=== PATIENT | male | born 1945 ===

== ENCOUNTER 2017-10-03 16:42 | Emergency (ER) | END 2017-10-03 19:08 | disposition home or self-care (01) ==

== ENCOUNTER 2018-03-13 17:12 | Emergency (ER) | payer MEDICARE, OTHER ==
[~2018-03-13] VITALS: Ht 162.6 cm; Wt 68.0 kg
[~2018-03-13 17:12] MED LIST: ALBU90OI6; GERD MED; Norco 5-325 Ta1 EACH PO; OMEG1CAP30; OMEG1CAP30 PO; OMEP20ER PO; OMEP40CA12 PO; PANT40 PO; PENVK250; PROM25 PO; RABE20; RANI150; TAMS.4ER; TAMS.4ER PO; Zantac150 MG PO
[2018-03-27] MEDS ORDERED: CEPH500 PO (02:17)
[2018-07-01] MEDS ORDERED: SACC250C (21:05)
== END 2018-03-13 19:07 | disposition home or self-care (01) ==
LOC: ER 17:12
DX: T83.038A Leakage of other urinary catheter, initial encounter (principal); R33.9 Retention of urine, unspecified; Z88.5 Allergy status to narcotic agent; Z79.899 Other long term (current) drug therapy; K21.9 Gastro-esophageal reflux disease without esophagitis
CPT/HCPCS: 51702; 51798; 99283-25

== ENCOUNTER 2018-06-13 12:10 | Inpatient (IN) | payer MEDICARE, OTHER ==
[~2018-06-13] VITALS: Ht 160 cm; Wt 64.2 kg
[~2018-06-13 12:10] MED LIST changes: +CEPH500 PO
[2018-06-13 12:59] LABS: BASOPHILS ABSOLUTE AUTO 0.01 K/mm3 (0.00-0.23); BASOPHILS PERCENT AUTO 0 % (0-2); EOSINOPHILS PERCENT AUTO 0 % (0-6); Hemoglobin 14.5 g/dL (13.5-17.5); IMMATURE GRAN ABSOLUTE AUTO 0.05 K/mm3 (0.00-0.10); IMMATURE GRAN PERCENT AUTO 0 % (0-1); LYMPHOCYTES ABSOLUTE AUTO 0.88 K/mm3 (0.84-5.20); LYMPHOCYTES PERCENT AUTO 7 % (21-46); MONOCYTES ABSOLUTE AUTO 0.99 K/mm3 (0.16-1.47); MONOCYTES PERCENT AUTO 7 % (4-13); Mean Corpuscular HGB 31.2 pg (26.0-34.0); Mean Corpuscular HGB Conc 33.7 g/dL (31.5-36.5); Mean Corpuscular Volume 93 fL (80-100); NEUTROPHILS ABSOLUTE AUTO 11.52 K/mm3 (1.96-9.15); NEUTROPHILS PERCENT AUTO 86 % (41-73); Platelet Count 244 K/mm3 (150-400); RDW Coefficient Variation 14.5 % (11.7-14.2); RDW Standard Deviation 49.3 fL (35.1-46.3); Red Blood Cell Count 4.65 M/mm3 (4.30-5.90); White Blood Cell Count 13.45 K/mm3 (4.00-11.30)
[2018-06-13 13:22] LABS: Source, Urine Clean Catch
[2018-06-13 14:10] LABS: Alanine Aminotransfer (ALT/SGP 17 U/L (12-78); Albumin, Blood 3.5 g/dL (3.4-5.0); Albumin/Globulin Ratio 0.7 (0.8-1.8); Alk Phos 76 U/L (50-136); Anion Gap 10 mmol/L (6-16); Aspartate Aminotrans (AST/SGOT 15 U/L (12-37); Bilirubin, Total 1.5 mg/dL (0.1-1.0); Blood Urea Nitrogen 9 mg/dL (8-24); Bun/Creatinine Ratio 8.6 (12.0-20.0); CO2, Blood 23 mmol/L (21-32); Calcium, Blood 9.1 mg/dL (8.5-10.1); Chloride, Blood 105 mmol/L (98-108); Creatinine, Blood 1.05 mg/dL (0.60-1.20); Globulin, Blood 4.7 g/dL (2.2-4.0); Glomerular Filtration Rate >60 (60-); Glucose, Blood 173 mg/dL (70-99); Potassium, Blood 3.8 mmol/L (3.5-5.5); Sodium, Blood 138 mmol/L (136-145); Total Protein, Blood 8.2 g/dL (6.4-8.2)
[2018-06-13 14:11] LABS: Appearance, Urine Cloudy (Clear); Bilirubin, Urine Neg (Neg); Blood, Urine 4+ (Neg); Color, Urine Amber (P-Yellow); Glucose Qualitative, Urine Neg (Neg); Ketones, Urine 1+ (Neg); Leukocyte Esterase, Urine 3+ (Neg); Nitrite, Urine Pos (Neg); Protein, Urine 3+ (Neg); Urobilinogen, Urine NORM (Normal)
[2018-06-13 15:00] LABS: White Blood Cells, Urine TNTC /hpf (0-5)
[2018-06-13 15:01] LABS: Bacteria Many /hpf; Squamous Epithelial Cells Not Seen /hpf (Few)
[2018-06-13 16:42] LABS: Source, Urine Catheter
[2018-06-13 16:56] LABS: Appearance, Urine Hazy (Clear); Bilirubin, Urine Neg (Neg); Blood, Urine 3+ (Neg); Color, Urine Yellow (P-Yellow); Glucose Qualitative, Urine Neg (Neg); Ketones, Urine Neg (Neg); Leukocyte Esterase, Urine 3+ (Neg); Nitrite, Urine Neg (Neg); Protein, Urine Neg (Neg); Urobilinogen, Urine NORM (Normal)
[2018-06-13 17:10] LABS: Squamous Epithelial Cells Rare /hpf (Few); White Blood Cells, Urine 50-100 /hpf (0-5)
[2018-06-13 17:11] LABS: Bacteria Few /hpf
--- NOTE | 2018-06-13 18:30 | NUR ---
PT ORIENTED TO ROOM; FAMILY ASSISTING WITH INTERPRETING INFORMATION. BED IN LOW AND LOCKED POSITION. PABLO IN PLACE. PT APPEARS IN NO ACUTE DISTRESS. ABLE TO STAND FROM ER STRETCHER AND TRANSFERT TO HOSPITAL BED INDEPENDENTLY. FREQUENT ROUNDING EXPLAINED TO PATIENT AND FAMILY.
[2018-06-13 21:25] LABS: Source, Urine Catheter
[2018-06-13 21:28] LABS: Appearance, Urine Hazy (Clear); Bilirubin, Urine Neg (Neg); Blood, Urine 3+ (Neg); Color, Urine Yellow (P-Yellow); Glucose Qualitative, Urine Neg (Neg); Ketones, Urine Neg (Neg); Leukocyte Esterase, Urine 3+ (Neg); Nitrite, Urine Neg (Neg); Protein, Urine 2+ (Neg); Urobilinogen, Urine NORM (Normal); pH, Urine 6.5 (5.0-8.0)
[2018-06-13 21:59] LABS: Red Blood Cells, Urine 0-2 /hpf (0-2); Squamous Epithelial Cells Not Seen /hpf (Few); White Blood Cells, Urine TNTC /hpf (0-5)
[2018-06-13 22:00] LABS: Bacteria Mod /hpf
--- NOTE | 2018-06-14 05:05 | NUR ---
SHIFT [facility] THE PATIENT WAS ADMITTED YESTERDAY, LATE DAY SHIFT FOR UTI. THE PATIENT SPEAKS VERY LITTLE KENYAN AND HAS HIS DAUGHTER IN HIS ROOM TO HELP. THE PATIENT HAD A PABLO CATHETER INPLACE UPON ADMISSION, SO IT WAS REMOVED, REPLACED AND A URINE SAMPLE WAS SENT TO THE LAB, PER PROTOCOL. THE PATIENT PRESENTED WITH VITALS WNL, A&O X4 AND WITH LUNGS THAT WERE CLEAR. THE PATIENT HAS RESTED OFF AND ON DURNING THE SHIFT, ASKING TO HAVE HIS DOOR CLOSED. THEPATIENT HAD A ELEVATED TEMP THIS AM AT 0445, (101.3) AND WAS GIVEN TYLENOL (650 MG) FOR IT. THE PATIENT SEEMS COMFORTABLE, WILL CONTINUE TO MONITOR.
[2018-06-14 05:30] LABS: BASOPHILS ABSOLUTE AUTO 0.02 K/mm3 (0.00-0.23); BASOPHILS PERCENT AUTO 0 % (0-2); EOSINOPHILS PERCENT AUTO 0 % (0-6); Hematocrit 37.1 % (37.0-53.0); Hemoglobin 12.5 g/dL (13.5-17.5); IMMATURE GRAN ABSOLUTE AUTO 0.15 K/mm3 (0.00-0.10); IMMATURE GRAN PERCENT AUTO 1 % (0-1); LYMPHOCYTES ABSOLUTE AUTO 1.97 K/mm3 (0.84-5.20); LYMPHOCYTES PERCENT AUTO 11 % (21-46); MONOCYTES ABSOLUTE AUTO 1.34 K/mm3 (0.16-1.47); MONOCYTES PERCENT AUTO 8 % (4-13); Mean Corpuscular HGB 30.9 pg (26.0-34.0); Mean Corpuscular HGB Conc 33.7 g/dL (31.5-36.5); Mean Corpuscular Volume 92 fL (80-100); Mean Platelet Volume 9.5 fL (9.1-12.4); NEUTROPHILS ABSOLUTE AUTO 14.02 K/mm3 (1.96-9.15); NEUTROPHILS PERCENT AUTO 80 % (41-73); Platelet Count 217 K/mm3 (150-400); RDW Coefficient Variation 14.3 % (11.7-14.2); RDW Standard Deviation 48.6 fL (35.1-46.3); Red Blood Cell Count 4.05 M/mm3 (4.30-5.90)
[2018-06-14 05:58] LABS: Anion Gap 11 mmol/L (6-16); Blood Urea Nitrogen 9 mg/dL (8-24); Bun/Creatinine Ratio 8.9 (12.0-20.0); CO2, Blood 22 mmol/L (21-32); Calcium, Blood 8.6 mg/dL (8.5-10.1); Chloride, Blood 108 mmol/L (98-108); Creatinine, Blood 1.01 mg/dL (0.60-1.20); Glomerular Filtration Rate >60 (60-); Glucose, Blood 121 mg/dL (70-99); Potassium, Blood 3.4 mmol/L (3.5-5.5); Sodium, Blood 141 mmol/L (136-145)
--- NOTE | 2018-06-14 14:49 | NUR ---
Per admit trigger, I met with Mr. Hickman to offer prayer and spiritual support. Numerous family members present. They declined my visit and told me that Father James would be visiting this afternoon. I will remain available.
--- NOTE | 2018-06-14 16:17 | NUR ---
SHIFT SUMMARY NO ACUTE CHANGES. PATIENT MEDICATED X 1 FOR PAIN. PATIENT'S FAMILY WAS IN THE ROOM ALL DAY AND ASSISTED IN COMMUNICATION WITH PATIENT. PATIENT RESTED IN BED MOST OF DAY BUT DID GET UP FOR SHOWER. CALL LIGHT IN REACH, WILL CONTINUE TO MONITOR.
--- NOTE | 2018-06-15 04:22 | NUR ---
SHIFT SUMMARY NO ACUTE CHANGES TO REPORT. PT HAS RESTED MOST OF THE NIGHT, HE HAS DENIED NEEDS. SCROTUM REMAINS SWOLLEN AND RED. CATHETER IN PLACE WITH ADEQUATE OUTPUT. LR INFUSING AT 125 ML/HR. FAMILY REMAINS AT BEDSIDE T/O THE NIGHT, AND ASSIST IN HIS CARE AND ARE ABLE TO HELP WITH LANGUAGE BARRIER BETWEEN PT AND STAFF HE IS LATVIAN SPEAKING ONLY. ASSESSMENT UNCHANGED, WILL CONTINUE TO MONITOR AND REPORT TO ONCOMING RN.
[2018-06-15 05:26] LABS: BASOPHILS ABSOLUTE AUTO 0.01 K/mm3 (0.00-0.23); BASOPHILS PERCENT AUTO 0 % (0-2); EOSINOPHILS ABSOLUTE AUTO 0.06 K/mm3 (0.00-0.68); EOSINOPHILS PERCENT AUTO 1 % (0-6); Hematocrit 36.1 % (37.0-53.0); Hemoglobin 11.9 g/dL (13.5-17.5); IMMATURE GRAN ABSOLUTE AUTO 0.05 K/mm3 (0.00-0.10); IMMATURE GRAN PERCENT AUTO 0 % (0-1); LYMPHOCYTES ABSOLUTE AUTO 2.16 K/mm3 (0.84-5.20); LYMPHOCYTES PERCENT AUTO 17 % (21-46); MONOCYTES ABSOLUTE AUTO 0.76 K/mm3 (0.16-1.47); MONOCYTES PERCENT AUTO 6 % (4-13); Mean Corpuscular HGB 30.3 pg (26.0-34.0); Mean Corpuscular Volume 92 fL (80-100); Mean Platelet Volume 9.8 fL (9.1-12.4); NEUTROPHILS ABSOLUTE AUTO 9.99 K/mm3 (1.96-9.15); NEUTROPHILS PERCENT AUTO 77 % (41-73); Platelet Count 211 K/mm3 (150-400); RDW Coefficient Variation 14.6 % (11.7-14.2); RDW Standard Deviation 49.4 fL (35.1-46.3); Red Blood Cell Count 3.93 M/mm3 (4.30-5.90); White Blood Cell Count 13.03 K/mm3 (4.00-11.30)
[2018-06-15 05:47] LABS: Albumin, Blood 2.5 g/dL (3.4-5.0); Anion Gap 8 mmol/L (6-16); Blood Urea Nitrogen 11 mg/dL (8-24); Bun/Creatinine Ratio 10.2 (12.0-20.0); CO2, Blood 25 mmol/L (21-32); Calcium, Blood 8.8 mg/dL (8.5-10.1); Chloride, Blood 110 mmol/L (98-108); Creatinine, Blood 1.08 mg/dL (0.60-1.20); Glomerular Filtration Rate >60 (60-); Glucose, Blood 111 mg/dL (70-99); Potassium, Blood 3.8 mmol/L (3.5-5.5); Sodium, Blood 143 mmol/L (136-145)
--- NOTE | 2018-06-15 08:15 | NUR ---
PT PLEASANT [place] SPEAKING. SON AT BEDSIDE. FLUENT FIELD MARKETING COORDINATOR. STATS PAIN RT TESTICLE. IS SWOLLEN, PAINFUL DR NOTIFIED. H/R REG, NO MURMER NOTED. NO TELE. LUNGS CLEAR, RESP EASY, UNLABORED. ON R.A. BT X4 LAST BM 2 DAYS. PT STATES NORM. VOIDS PABLO CATH. CHRONIC. CLEAR YELLOW FLUID DRAINING. NO OTHER CONCERNS AT THIS TIME. WILL MEDICATE PER EMAR. BED IN LOW POSITION, CALL LITE IN REACH, CALLS APPROP
--- NOTE | 2018-06-15 19:22 | NUR ---
PT PLEASANT TODAY. NO BENGALI SPEAKING. BILINGUAL FAMILY AT ROOM AT BEDSIDE AT ALL TIME. PAIN MANAGED WELL WITH TORADOL. FENTANYL DID VERY LITTLE FOR HIM. NO OTHER CONCERNS AT THIS TIME. BED IN LOW POSITION, CALL LITE IN REACH . CALLS APPROP.
--- NOTE | 2018-06-16 04:28 | NUR ---
SHIFT SUMMARY PT'S FAMILY ASSISTS/PROVIDES MUCH OF THE CARE. PT FINDS TORADOL MORE EFFECTIVE AT CONTROLLING HIS PAIN THAN ALL ELSE ON HIS EMAR. TORADOL Q 6HR. HE IS A STANDBY ASSIST, ON RA. HE HAS A HX OF BPH. ADMIT DX STATES UTI. PT SPEAKS ONLY CZECH, FAMILY DOES SPEAK SAMI. PT HAS EPIDIDIMITIS OF THE RT TESTICLE, IT IS SWOLLEN AND HARD. PT'S PAIN WELL CONTROLLED THROUGHOUT SHIFT. DR'S NOTES RECOMMEND TESTICULAR ELEVATION AND ICE. WITH DOWNTRENDING WBC COUNT PT MAY DC WITHIN 24 - 48 HRS.
[2018-06-16 05:11] LABS: BASOPHILS ABSOLUTE AUTO 0.02 K/mm3 (0.00-0.23); BASOPHILS PERCENT AUTO 0 % (0-2); EOSINOPHILS ABSOLUTE AUTO 0.06 K/mm3 (0.00-0.68); EOSINOPHILS PERCENT AUTO 1 % (0-6); Hematocrit 37.1 % (37.0-53.0); Hemoglobin 12.2 g/dL (13.5-17.5); IMMATURE GRAN ABSOLUTE AUTO 0.04 K/mm3 (0.00-0.10); IMMATURE GRAN PERCENT AUTO 0 % (0-1); LYMPHOCYTES ABSOLUTE AUTO 1.58 K/mm3 (0.84-5.20); LYMPHOCYTES PERCENT AUTO 13 % (21-46); MONOCYTES ABSOLUTE AUTO 0.97 K/mm3 (0.16-1.47); MONOCYTES PERCENT AUTO 8 % (4-13); Mean Corpuscular HGB 30.6 pg (26.0-34.0); Mean Corpuscular HGB Conc 32.9 g/dL (31.5-36.5); Mean Corpuscular Volume 93 fL (80-100); Mean Platelet Volume 9.6 fL (9.1-12.4); NEUTROPHILS ABSOLUTE AUTO 9.17 K/mm3 (1.96-9.15); NEUTROPHILS PERCENT AUTO 78 % (41-73); Platelet Count 238 K/mm3 (150-400); RDW Coefficient Variation 14.5 % (11.7-14.2); Red Blood Cell Count 3.99 M/mm3 (4.30-5.90); White Blood Cell Count 11.84 K/mm3 (4.00-11.30)
[2018-06-16 05:34] LABS: Albumin, Blood 2.6 g/dL (3.4-5.0); Anion Gap 7 mmol/L (6-16); Blood Urea Nitrogen 11 mg/dL (8-24); Bun/Creatinine Ratio 10.7 (12.0-20.0); CO2, Blood 26 mmol/L (21-32); Calcium, Blood 8.9 mg/dL (8.5-10.1); Chloride, Blood 109 mmol/L (98-108); Creatinine, Blood 1.03 mg/dL (0.60-1.20); Glomerular Filtration Rate >60 (60-); Glucose, Blood 143 mg/dL (70-99); Phosphorus, Blood 2.9 mg/dL (2.5-4.9); Potassium, Blood 3.8 mmol/L (3.5-5.5); Sodium, Blood 142 mmol/L (136-145)
--- NOTE | 2018-06-16 19:32 | NUR ---
SHIFT SUMMARY- PT HAS HAD NO ACUTE CHANGES T/O THE SHIFT. DR LEMONS ADDED TRAMADOL TO PT MED PRNS. SEEMS TO HELP. PT HAS HAD ONE DOSE OF THAT AND TWO OF TRAMADOL. TYLENOL FOR LOW GRADE FEVERS, PT SEEMS TO RESPOND WELL TO TYLENOL. PT HAS FAMILY AT THE BEDSIDE HE SPEAKS NO MARSHALLESE, FAMILY HAS CHOSEN TO STAY AND TRANSLATE FOR HIM. FAMILY ASSISTS PT WITH ALL TRANSFERS AND TOILETING. PT HAS HAD TWO BM'S THIS SHIFT AND HIS DAUGHTER GOT HIM UP INTO THE CHAIR TWICE. ICE WAS APPLIED TO THE SCROTUM PER ORDER. PT DID NOT REALLY WANT ICE IN THAT AREA BUT WAS WILLING TO HAVE IT PLACED. PT IS VERY WILLING TO DO WHAT STAFF ASK, HE DOES NOT LIKE ANY NARCOTIC MEDICATIONS PER FAMILY REPORT, SO TORADOL, TRAMADOL AND TYLENOL ARE ORDERED.
[2018-06-17 04:47] LABS: BASOPHILS ABSOLUTE AUTO 0.02 K/mm3 (0.00-0.23); BASOPHILS PERCENT AUTO 0 % (0-2); EOSINOPHILS ABSOLUTE AUTO 0.11 K/mm3 (0.00-0.68); EOSINOPHILS PERCENT AUTO 1 % (0-6); Hematocrit 35.7 % (37.0-53.0); Hemoglobin 11.5 g/dL (13.5-17.5); IMMATURE GRAN ABSOLUTE AUTO 0.04 K/mm3 (0.00-0.10); IMMATURE GRAN PERCENT AUTO 0 % (0-1); LYMPHOCYTES ABSOLUTE AUTO 1.69 K/mm3 (0.84-5.20); LYMPHOCYTES PERCENT AUTO 12 % (21-46); MONOCYTES ABSOLUTE AUTO 1.13 K/mm3 (0.16-1.47); MONOCYTES PERCENT AUTO 8 % (4-13); Mean Corpuscular HGB Conc 32.2 g/dL (31.5-36.5); Mean Corpuscular Volume 93 fL (80-100); Mean Platelet Volume 9.5 fL (9.1-12.4); NEUTROPHILS ABSOLUTE AUTO 10.76 K/mm3 (1.96-9.15); NEUTROPHILS PERCENT AUTO 78 % (41-73); Platelet Count 249 K/mm3 (150-400); RDW Coefficient Variation 14.5 % (11.7-14.2); Red Blood Cell Count 3.83 M/mm3 (4.30-5.90); White Blood Cell Count 13.75 K/mm3 (4.00-11.30)
[2018-06-17 05:04] LABS: Albumin, Blood 2.4 g/dL (3.4-5.0); Anion Gap 9 mmol/L (6-16); Blood Urea Nitrogen 15 mg/dL (8-24); Bun/Creatinine Ratio 13.4 (12.0-20.0); CO2, Blood 25 mmol/L (21-32); Calcium, Blood 8.6 mg/dL (8.5-10.1); Chloride, Blood 107 mmol/L (98-108); Creatinine, Blood 1.12 mg/dL (0.60-1.20); Glomerular Filtration Rate >60 (60-); Glucose, Blood 132 mg/dL (70-99); Phosphorus, Blood 3.1 mg/dL (2.5-4.9); Potassium, Blood 3.7 mmol/L (3.5-5.5); Sodium, Blood 141 mmol/L (136-145)
--- NOTE | 2018-06-17 05:45 | NUR ---
SHIFT SUMMARY PT SLEPT MANY HOURS BEFORE ASKING FOR PAIN MEDICATION. THEN IT WAS DIFFICULT TO BRING DOWN. I EXPLAINED TO HIS FAMILY THAT IT IS BETTER TO TREAT THE PAIN BEFORE IT GROWS OUT OF CONTROL. THEN THE PAIN IS MORE EASILY CONTROLLED WITH LESS. I DID PROVIDE EMAR PAIN MEDICATIONS AND ICE TO THE AFFECTED AREA. DAY SHIFT NURSE STATED THERE MAY BE AN ABSCESS PRESENT REQUIRING TREATMENT. PT STATING THAT THE PAIN IS NOW TRAVELING UP TO HIS STOMACH AND HE IS CONCERNED. THE PT'S URINE IS DARKER THAN NORMAL IN THE CHRONIC PABLO BAG (HX OF BPH).
--- NOTE | 2018-06-17 19:58 | NUR ---
SHIFT SUMMARY- PT HAS HAD NO ACUTE CHANGES T/O THE SHIFT. MEDICATED FOR PAIN THIS MORNING 06/17 AND THIS AFTERNOON FOR SWELLING WITH TORADOL. AFFECTED AREA WAS ELEVATED AND ICE APPLIED ONCE TODAY. PT FAMILY HELPED HIM TAKE A SHOWER AND TOOK HIM FOR A WALK IN THE [place]. THIS ENDED AT SHIFT CHANGE, 1800 DOSE OF IV ABX ATTEMPTED TO START, IV INFILTRATED. REQUESTED NIGHT RN START MEDS, ASKED NIGHT RN HERLINDA TO START THE IV. PTIN BED WITH FAMILY AND CALL LIGHT IN REACH.
[2018-06-18 05:06] LABS: BASOPHILS ABSOLUTE AUTO 0.02 K/mm3 (0.00-0.23); BASOPHILS PERCENT AUTO 0 % (0-2); EOSINOPHILS ABSOLUTE AUTO 0.21 K/mm3 (0.00-0.68); EOSINOPHILS PERCENT AUTO 2 % (0-6); Hemoglobin 11.7 g/dL (13.5-17.5); IMMATURE GRAN ABSOLUTE AUTO 0.05 K/mm3 (0.00-0.10); IMMATURE GRAN PERCENT AUTO 1 % (0-1); LYMPHOCYTES ABSOLUTE AUTO 1.95 K/mm3 (0.84-5.20); LYMPHOCYTES PERCENT AUTO 19 % (21-46); MONOCYTES ABSOLUTE AUTO 0.83 K/mm3 (0.16-1.47); MONOCYTES PERCENT AUTO 8 % (4-13); Mean Corpuscular HGB 30.5 pg (26.0-34.0); Mean Corpuscular HGB Conc 33.4 g/dL (31.5-36.5); Mean Corpuscular Volume 91 fL (80-100); Mean Platelet Volume 9.4 fL (9.1-12.4); NEUTROPHILS ABSOLUTE AUTO 7.41 K/mm3 (1.96-9.15); NEUTROPHILS PERCENT AUTO 71 % (41-73); Platelet Count 289 K/mm3 (150-400); RDW Coefficient Variation 14.6 % (11.7-14.2); RDW Standard Deviation 49.1 fL (35.1-46.3); Red Blood Cell Count 3.84 M/mm3 (4.30-5.90); White Blood Cell Count 10.47 K/mm3 (4.00-11.30)
--- NOTE | 2018-06-18 05:21 | NUR ---
SHIFT SUMMARY FAMILY IN ROOM, ASSISTS WITH PT CARE. FAMILY HAS CONCERNS THEY WISH TO EXPRESS: THEY ARE FRIGHTENED PT WILL BE DISCHARGED WITH A FEVER AND BE SENT HOME, ONLY TO BE RETURNED TO THE HOSPITAL. THEY ARE UNABLE TO TRANSPORT PT TO [place] TO SEE REFERAL UROLOGIST, CAN TRANSPORTATION BE ARRANGED? THEY ARE WONDERING HOW THE ABSCESS WILL BE MANAGED. THE PT'S IV INFILTRATED AT END OF DAY NURSE'S SHIFT. NEW IV PLACED AND PATENT IN LEFT ARM, JUST ABOVE THE PREVIOUS. THE PT NOW HAS EYE DROPS IN HIS DRAWER FOR DRY EYES. IV TORADOL SHOULD BE GIVEN WHEN REQUESTED BY PT (AND DUE) IT'S INTENTION IS TO MANAGE THE PT'S INFLAMMATION, WELL PAIN. NO OTHER CHANGES THROUGHOUT SHIFT, PT'S PAIN WAS WELL MANAGED.
[2018-06-18 05:26] LABS: Albumin, Blood 2.4 g/dL (3.4-5.0); Anion Gap 7 mmol/L (6-16); Blood Urea Nitrogen 11 mg/dL (8-24); Bun/Creatinine Ratio 10.2 (12.0-20.0); CO2, Blood 26 mmol/L (21-32); Calcium, Blood 8.8 mg/dL (8.5-10.1); Chloride, Blood 109 mmol/L (98-108); Creatinine, Blood 1.08 mg/dL (0.60-1.20); Glomerular Filtration Rate >60 (60-); Glucose, Blood 125 mg/dL (70-99); Phosphorus, Blood 3.3 mg/dL (2.5-4.9); Potassium, Blood 3.7 mmol/L (3.5-5.5); Sodium, Blood 142 mmol/L (136-145)
--- NOTE | 2018-06-18 14:32 | NUR ---
CALLED DR. ELLIOTT ABOUT PATIENT HAVING SHARP INTERMITTENT PAIN IN CHEST. SIMETHICONE GIVEN X1 WITH SOME RELEIF. DR. ELLIOTT GAVE VERBAL ORDER FOR MAALOX, AND WILL PUT IN THE REST OF THE ORDERS.
--- NOTE | 2018-06-18 17:01 | NUR ---
PATIENT A/OX4, UP WITH SBA TO CHAIR. FAMILY AT BEDSIDE AND ASSISTS WITH ADL'S. CHRONIC PABLO TO GRAVITY WITH ADEQUATE U/O. R TESTICLE SWOLLEN, HARD AND PAINFUL. TORADOL GIVEN X1 THIS SHIFT FOR PAIN. PATIENT REPORTED CHEST PAIN THIS AFTERNOON, TROPONIN WAS DRAWN AND IT WAS NEGATIVE. MAALOX GIVEN AND CHEST PAIN WAS RESOLVED. 20G IV TO L FA SL BETWEEN ABX. PATIENT IS ARMENIAN SPEAKING ONLY AND FAMILY AND STAFF ARE ASSISTING WITH TRANSLATION. PATIENT IS CALM AND COOPERATIVE WITH CARE AND CALLS APPROPRIATELY FOR ASSISTANCE.
--- NOTE | 2018-06-19 04:33 | NUR ---
PPAP COORDINATOR SUMMARY NO ACUTE CHANGES THIS SHIFT. PT AAOX4 AND PLEASANT/COOPERATIVE. STANDBY ASSIST TO BATHROOM. PT FAMILY HELPS PT MOST OF THE TIME IN THE ROOM AND TO THE BATHROOM. DAUGHTER STAYED AT BEDSIDE THROUGH THE NIGHT TO ASSIST HER DAD AND TO HELP WITH TRANSLATION PT ONLY SPEAKS KYRGYZ. PT REPORTED SOME PAIN OF HIS SWOLLEN SCROTUM. GAVE ULTRAM, HOWEVER PT STATED IT DID NOT HELP WITH PAIN. DAUGHTER REPORTED THAT IV TORADOL REALLY HELPED WITH HIS PAIN CONTROL, PROBABLY DUE TO IT'S ANTI INFLAMMATORY PROPERTIES. SPOKE WITH DR MOHAMUD REGARDING POOR PAIN MANAGEMENT WITH ULTRAM, RECIEVED ORDER TO START TORADOL AGAIN. PT REPORTS ALMOST COMPLETE PAIN RELIEF WITH 15 MG IV TORADOL. VSS, WILL CONTINUE TO MONITOR.
[2018-06-19] MEDS ORDERED: ACET325 PO (09:32)
[2018-06-19] MEDS ORDERED: Liquitears15 ML BOTHEYES (09:33)
[2018-06-19] MEDS ORDERED: ALUM-MAG HYDRO360 ML PO (09:33)
[2018-06-19] MEDS ORDERED: SACC250C PO (09:33)
[2018-06-19] MEDS ORDERED: TRAM50 PO (09:34)
[2018-06-19] MEDS ORDERED: SIME80CH PO (09:34)
[2018-06-19] MEDS ORDERED: IBU800 MG PO (09:35)
[2018-06-19] MEDS ORDERED: LEVFLO500 PO (09:35)
--- NOTE | 2018-06-19 11:25 | NUR ---
PATIENT D/C'D TO HOME WITH FAMILY. D/C INSTRUCTIONS AND EDUCATION DISCUSSED WITH PATIENT AND FAMILY AND COPY PROVIDED. RX MEDICATIONS FAXED TO [facility] IN [place] AND HARD SCRIPT FOR TRAMODOL GIVEN TO DAUGHTER FERNIE. PATIENT AND FAMILY DENY ANY FURTHER QUESTIONS OR CONCERNS. APPT WITH UROLOGIST SCHEDULED FOR MONDAY IN [place] WITH DR. PALACIOS.
[2018-07-01] MEDS ORDERED: SACC250C (21:05)
== END 2018-06-19 11:31 | disposition home or self-care (01) | DRG 872 ==
LOC: ER 12:10 → MEDS 17:19 → ENPENDDIS 06-19 09:14 → MEDS 06-19 11:31
PROVIDERS: Emergency Medicine; Physician Assistant; ADMIT Family Medicine
DX: A41.9 Sepsis, unspecified organism (principal); N39.0 Urinary tract infection, site not specified; N13.8 Other obstructive and reflux uropathy; R65.20 Severe sepsis without septic shock; N40.1 Benign prostatic hyperplasia with lower urinary tract symptoms; N45.1 Epididymitis; E78.5 Hyperlipidemia, unspecified; K21.9 Gastro-esophageal reflux disease without esophagitis; Z88.5 Allergy status to narcotic agent; Z79.899 Other long term (current) drug therapy; Z87.891 Personal history of nicotine dependence
CPT/HCPCS: 36415; 51798; 71046; 76870; 80048; 80053; 80069; 81001; 83605; 84484; 85025; 87040; 87086; 96365; 96367; 96375; 99285-25; J0692; J1650; J1885; J1956; J3010; J3370; J7030; J7050; J7120

== ENCOUNTER → 2018-07-08 | Outpatient (CLI) | payer MEDICARE, OTHER ==
[~2018-07-08] MED LIST changes: +ACET325 PO; +ALUM-MAG HYDRO360 ML PO; +IBU800 MG PO; +LEVFLO500 PO; +Liquitears15 ML BOTHEYES; +SACC250C; +SACC250C PO; +SIME80CH PO; +TRAM50 PO
[2018-07-08 12:27] LABS: BASOPHILS ABSOLUTE AUTO 0.01 K/mm3 (0.00-0.23); BASOPHILS PERCENT AUTO 0 % (0-2); EOSINOPHILS ABSOLUTE AUTO 0.06 K/mm3 (0.00-0.68); EOSINOPHILS PERCENT AUTO 1 % (0-6); Hemoglobin 13.4 g/dL (13.5-17.5); IMMATURE GRAN ABSOLUTE AUTO 0.02 K/mm3 (0.00-0.10); IMMATURE GRAN PERCENT AUTO 0 % (0-1); LYMPHOCYTES ABSOLUTE AUTO 1.58 K/mm3 (0.84-5.20); LYMPHOCYTES PERCENT AUTO 26 % (21-46); MONOCYTES ABSOLUTE AUTO 0.42 K/mm3 (0.16-1.47); MONOCYTES PERCENT AUTO 7 % (4-13); Mean Corpuscular HGB 30.1 pg (26.0-34.0); Mean Corpuscular HGB Conc 33.5 g/dL (31.5-36.5); Mean Platelet Volume 9.1 fL (9.1-12.4); NEUTROPHILS ABSOLUTE AUTO 4.06 K/mm3 (1.96-9.15); NEUTROPHILS PERCENT AUTO 66 % (41-73); Platelet Count 342 K/mm3 (150-400); RDW Coefficient Variation 15.2 % (11.7-14.2); RDW Standard Deviation 49.5 fL (35.1-46.3); Red Blood Cell Count 4.45 M/mm3 (4.30-5.90); White Blood Cell Count 6.15 K/mm3 (4.00-11.30)
[2018-07-08 12:42] LABS: Mean Corpuscular Volume 90 fL (80-100)
[2018-07-08 12:45] LABS: Alanine Aminotransfer (ALT/SGP 18 U/L (12-78); Albumin, Blood 3.7 g/dL (3.4-5.0); Albumin/Globulin Ratio 0.8 (0.8-1.8); Alk Phos 83 U/L (40-126); Anion Gap 10 mmol/L (6-16); Aspartate Aminotrans (AST/SGOT 20 U/L (12-37); Bilirubin, Total 0.6 mg/dL (0.1-1.0); Blood Urea Nitrogen 10 mg/dL (8-24); Bun/Creatinine Ratio 9.3 (12.0-20.0); CO2, Blood 27 mmol/L (21-32); CPK Creatine Kinase 71 U/L (39-308); Calcium, Blood 9.5 mg/dL (8.5-10.1); Chloride, Blood 104 mmol/L (98-108); Creatinine, Blood 1.08 mg/dL (0.60-1.20); Globulin, Blood 4.4 g/dL (2.2-4.0); Glomerular Filtration Rate >60 (60-); Glucose, Blood 107 mg/dL (70-99); Potassium, Blood 3.8 mmol/L (3.5-5.5); Sodium, Blood 141 mmol/L (136-145); Thyroid Stimulating Hormone 0.903 uIU/mL (0.360-4.800); Total Protein, Blood 8.1 g/dL (6.4-8.2)
[2018-07-08 12:51] LABS: Troponin I <0.017 ng/mL (0.000-0.040)
== END | disposition home or self-care (01) ==
LOC: LAB EV 12:20 → LAB SHORT 12:20
PROVIDERS: General Practice
DX: R06.00 Dyspnea, unspecified (principal); R53.81 Other malaise
CPT/HCPCS: 80053; 82550; 83880; 84443; 84484; 85025; 85379

== ENCOUNTER 2018-08-24 19:27 | Emergency (ER) | payer MEDICARE, OTHER ==
[~2018-08-24] VITALS: Ht 162.6 cm; Wt 68.0 kg
[2018-08-24 20:24] LABS: Alanine Aminotransfer (ALT/SGP 17 U/L (12-78); Alk Phos 79 U/L (50-136); Anion Gap 6 mmol/L (6-16); Aspartate Aminotrans (AST/SGOT 18 U/L (12-37); Bilirubin, Total 0.8 mg/dL (0.1-1.0); Blood Urea Nitrogen 14 mg/dL (8-24); Bun/Creatinine Ratio 14.7 (12.0-20.0); CO2, Blood 28 mmol/L (21-32); Calcium, Blood 9.5 mg/dL (8.5-10.1); Chloride, Blood 107 mmol/L (98-108); Creatinine, Blood 0.95 mg/dL (0.60-1.20); Glomerular Filtration Rate >60 (60-); Glucose, Blood 103 mg/dL (70-99); Potassium, Blood 3.5 mmol/L (3.5-5.5); Sodium, Blood 141 mmol/L (136-145)
[2018-08-24 20:34] LABS: BASOPHILS ABSOLUTE AUTO 0.01 K/mm3 (0.00-0.23); BASOPHILS PERCENT AUTO 0 % (0-2); EOSINOPHILS ABSOLUTE AUTO 0.08 K/mm3 (0.00-0.68); EOSINOPHILS PERCENT AUTO 2 % (0-6); Hemoglobin 14.5 g/dL (13.5-17.5); IMMATURE GRAN ABSOLUTE AUTO 0.01 K/mm3 (0.00-0.10); IMMATURE GRAN PERCENT AUTO 0 % (0-1); LYMPHOCYTES ABSOLUTE AUTO 2.53 K/mm3 (0.84-5.20); LYMPHOCYTES PERCENT AUTO 48 % (21-46); MONOCYTES ABSOLUTE AUTO 0.44 K/mm3 (0.16-1.47); MONOCYTES PERCENT AUTO 8 % (4-13); Mean Corpuscular HGB 29.9 pg (26.0-34.0); Mean Corpuscular Volume 91 fL (80-100); Mean Platelet Volume 9.2 fL (9.1-12.4); NEUTROPHILS ABSOLUTE AUTO 2.21 K/mm3 (1.96-9.15); NEUTROPHILS PERCENT AUTO 42 % (41-73); Platelet Count 255 K/mm3 (150-400); RDW Coefficient Variation 15.3 % (11.7-14.2); RDW Standard Deviation 51.1 fL (35.1-46.3); Red Blood Cell Count 4.85 M/mm3 (4.30-5.90); White Blood Cell Count 5.28 K/mm3 (4.00-11.30)
[2018-08-24 21:30] LABS: Source, Urine Clean Catch
[2018-08-24 21:33] LABS: Appearance, Urine Turbid (Clear); Bilirubin, Urine Neg (Neg); Blood, Urine 4+ (Neg); Color, Urine Yellow (P-Yellow); Glucose Qualitative, Urine Neg (Neg); Ketones, Urine 2+ (Neg); Leukocyte Esterase, Urine 3+ (Neg); Nitrite, Urine Neg (Neg); Protein, Urine 3+ (Neg); Specific Gravity, Urine 1.015 (1.003-1.022); Urobilinogen, Urine 1+ (Normal)
[2018-08-24 21:39] LABS: Bacteria Many /hpf; Squamous Epithelial Cells Not Seen /hpf (Few); White Blood Cells, Urine TNTC /hpf (0-5)
[2018-08-24] MEDS ORDERED: CEPH500 PO (22:51)
== END 2018-08-24 23:59 | disposition home or self-care (01) ==
LOC: ER 19:27
PROVIDERS: Physician Assistant
DX: N39.0 Urinary tract infection, site not specified (principal); R07.81 Pleurodynia; Z88.5 Allergy status to narcotic agent; Z79.899 Other long term (current) drug therapy; K21.9 Gastro-esophageal reflux disease without esophagitis
CPT/HCPCS: 71046; 74176; 80053; 81001; 83690; 85025; 87077; 87086; 87186; 96365; 99284-25; J0696

== ENCOUNTER → 2018-09-05 | Outpatient (CLI) | payer MEDICARE, OTHER ==
[2018-09-05 11:15] LABS: BASOPHILS ABSOLUTE AUTO 0.02 K/mm3 (0.00-0.23); BASOPHILS PERCENT AUTO 0 % (0-2); EOSINOPHILS ABSOLUTE AUTO 0.06 K/mm3 (0.00-0.68); EOSINOPHILS PERCENT AUTO 1 % (0-6); Hematocrit 46.9 % (37.0-53.0); Hemoglobin 15.7 g/dL (13.5-17.5); IMMATURE GRAN ABSOLUTE AUTO 0.01 K/mm3 (0.00-0.10); IMMATURE GRAN PERCENT AUTO 0 % (0-1); LYMPHOCYTES ABSOLUTE AUTO 2.14 K/mm3 (0.84-5.20); LYMPHOCYTES PERCENT AUTO 36 % (21-46); MONOCYTES ABSOLUTE AUTO 0.22 K/mm3 (0.16-1.47); MONOCYTES PERCENT AUTO 4 % (4-13); Mean Corpuscular HGB 30.2 pg (26.0-34.0); Mean Corpuscular HGB Conc 33.5 g/dL (31.5-36.5); Mean Corpuscular Volume 90 fL (80-100); Mean Platelet Volume 9.2 fL (9.1-12.4); NEUTROPHILS ABSOLUTE AUTO 3.51 K/mm3 (1.96-9.15); NEUTROPHILS PERCENT AUTO 59 % (41-73); Platelet Count 262 K/mm3 (150-400); RDW Coefficient Variation 15.1 % (11.7-14.2); RDW Standard Deviation 50.3 fL (35.1-46.3); White Blood Cell Count 5.96 K/mm3 (4.00-11.30)
== END | disposition home or self-care (01) ==
LOC: LAB SHORT 11:10 → LAB EV 11:10
PROVIDERS: Physician Assistant
DX: R10.31 Right lower quadrant pain (principal)
CPT/HCPCS: 85025

== ENCOUNTER 2019-02-12 16:47 | Observation (INO) | payer MEDICARE, OTHER ==
[~2019-02-12] VITALS: Ht 165.1 cm; Wt 63.5 kg
[~2019-02-12 16:47] MED LIST changes: +PANT20 PO; -PANT40 PO
[2019-02-12] MEDS ORDERED: OCUVITE ADULT1 EAC1 PO (17:57)
--- NOTE | 2019-02-13 07:51 | NUR ---
SHIFT SUMMARY PT POD#1. AAOX4. PT REPORTING MINIMAL DISCOMFORT, NO NAUSEA/EMESIS. ABD INCISOINS WITH STERI STRIPS X3 C/D/I. SWELLING NOTED UNDER LEFT ABD INCISION, DECREASED THIS SHIFT. PT TRISTANIAN SPEAKING. FAMILY AT BEDSIDE T/O NIGHT. INDEPENDENT IN ROOM. IVF + ABX PER ORDERS. PT + FAMILY USES CALL LIGHT FOR ASSISTANCE. PT UP TALKING WITH SON THIS AM, NADN, CALL LIGHT IN REACH.
[2019-02-13] MEDS ORDERED: AMOCLA875 PO (08:44)
[2019-02-13] MEDS ORDERED: OXYC5 PO (08:44)
--- NOTE | 2019-02-13 10:04 | NUR ---
SHIFT SUMMARY PT A&OX4, VSS, LEFT FLOOR VIA WC WITH PLAN REP TO GO HOME WITH FAMILY, WITH ALL PERSONAL POSSESSIONS INCLUDING DISCHARGE PACKET, 1 NARC SCRIPT AND 1 ABX SCRIPT. DC INSTRUCTIONS PROVIDED. PT AND FAMILY REP UNDERSTANDING THOSE INSTRUCTIONS INCLUDING FU APPT WITH SURGEON 2 WKS. IV DC'D.
== END 2019-02-13 09:58 | disposition home or self-care (01) ==
LOC: ER 16:47 → SURS 17:33 → ER 17:33 → SURS 19:06
PROVIDERS: ADMIT Surgery
PROC: 0DTJ4ZZ Resection of Appendix, Percutaneous Endoscopic Approach (ICD-10-PCS; principal; 2019-02-13)
DX: K35.33 Acute appendicitis with perforation, localized peritonitis, and gangrene, with abscess (principal); K21.9 Gastro-esophageal reflux disease without esophagitis
CPT/HCPCS: 36415; 72193; 80053; 82565; 85025; 88304; 93005; 93010; 96365; 96376; 99284-25; C9113; G0378; J0330; J1100; J2250; J2370; J2405; J2543; J2704; J3010; J7030; J7120; Q9967

== ENCOUNTER 2020-02-12 18:25 | Emergency (ER) | payer MEDICARE ==
[~2020-02-12] VITALS: Ht 162.6 cm; Wt 67.0 kg
[~2020-02-12 18:25] MED LIST changes: +AMOCLA875 PO; +ASPI81CH PO; +ATOR40TA PO; +DIPHENHYDR12.5 MG/1 PO; +OCUVITE ADULT1 EAC1 PO; +OCUVITE ADULT1 EAC2 PO; +OXYC5 PO; +Prinivil10 MG PO; +TAMSULOSIN HCL0.4 M1 PO
[2020-02-12 19:17] LABS: BASOPHILS ABSOLUTE AUTO 0.04 K/mm3 (0.00-0.23); BASOPHILS PERCENT AUTO 1 % (0-2); Hematocrit 45.7 % (37.0-53.0); Hemoglobin 15.2 g/dL (13.5-17.5); LYMPHOCYTES ABSOLUTE AUTO 2.79 K/mm3 (0.84-5.20); LYMPHOCYTES PERCENT AUTO 47 % (21-46); MONOCYTES ABSOLUTE AUTO 0.37 K/mm3 (0.16-1.47); MONOCYTES PERCENT AUTO 6 % (4-13); Mean Corpuscular HGB Conc 33.3 g/dL (31.5-36.5); Mean Corpuscular Volume 93 fL (80-100); Mean Platelet Volume 9.2 fL (9.1-12.4); Platelet Count 258 K/mm3 (150-400); RDW Coefficient Variation 13.5 % (11.7-14.2); RDW Standard Deviation 46.2 fL (35.1-46.3); Red Blood Cell Count 4.91 M/mm3 (4.30-5.90); White Blood Cell Count 5.91 K/mm3 (4.00-11.30)
[2020-02-12 19:18] LABS: EOSINOPHILS ABSOLUTE AUTO 0.73 K/mm3 (0.00-0.68); EOSINOPHILS PERCENT AUTO 12 % (0-6); IMMATURE GRAN ABSOLUTE AUTO 0.01 K/mm3 (0.00-0.10); IMMATURE GRAN PERCENT AUTO 0 % (0-1); NEUTROPHILS ABSOLUTE AUTO 1.97 K/mm3 (1.96-9.15); NEUTROPHILS PERCENT AUTO 33 % (41-73)
[2020-02-12 19:32] LABS: International Normalized Ratio 1.09; Prothrombin Time Results 11.6 Sec (9.7-11.5)
[2020-02-12 19:41] LABS: Alanine Aminotransfer (ALT/SGP 30 U/L (12-78); Albumin, Blood 4.2 g/dL (3.4-5.0); Alk Phos 91 U/L (50-136); Anion Gap 3 mmol/L (6-16); Aspartate Aminotrans (AST/SGOT 20 U/L (12-37); Bilirubin, Total 0.7 mg/dL (0.1-1.0); Blood Urea Nitrogen 14 mg/dL (8-24); Bun/Creatinine Ratio 12.3 (12.0-20.0); CO2, Blood 28 mmol/L (21-32); Calcium, Blood 9.7 mg/dL (8.5-10.1); Chloride, Blood 111 mmol/L (98-108); Creatinine, Blood 1.14 mg/dL (0.60-1.20); Glomerular Filtration Rate >60 (60-); Glucose, Blood 116 mg/dL (70-99); Potassium, Blood 4.1 mmol/L (3.5-5.5); Sodium, Blood 142 mmol/L (136-145); Total Protein, Blood 8.2 g/dL (6.4-8.2)
[2020-02-12 22:29] LABS: Source, Urine Clean Catch
[2020-02-12 22:33] LABS: Bilirubin, Urine Neg (Neg); Blood, Urine 1+ (Neg); Glucose Qualitative, Urine Neg (Neg); Ketones, Urine Neg (Neg); Leukocyte Esterase, Urine Neg (Neg); Nitrite, Urine Neg (Neg); Protein, Urine 1+ (Neg); Specific Gravity, Urine 1.015 (1.003-1.022); Urobilinogen, Urine NORM (Normal)
[2020-02-12 22:42] LABS: Amorphous Light (0-Heavy); Appearance, Urine Clear (Clear); Bacteria Rare /hpf; Color, Urine Yellow (P-Yellow); Mucus Light (0-Heavy); Red Blood Cells, Urine 0-2 /hpf (0-2); Squamous Epithelial Cells Few /hpf (Few); White Blood Cells, Urine 0-2 /hpf (0-5)
== END 2020-02-13 01:25 | disposition home or self-care (01) ==
LOC: ER 18:25
PROVIDERS: Physician Assistant
DX: F03.90 Unspecified dementia, unspecified severity, without behavioral disturbance, psychotic disturbance, mood disturbance, and anxiety (principal); K21.9 Gastro-esophageal reflux disease without esophagitis; Z88.5 Allergy status to narcotic agent; Z79.82 Long term (current) use of aspirin; Z79.899 Other long term (current) drug therapy
CPT/HCPCS: 36415; 70450; 74177; 80053; 81001; 82947; 85025; 85610; 93005; 93010; 96360-59; 96361; 99285-25; J7030; Q9967

== ENCOUNTER 2021-10-17 13:25 | Emergency (ER) | payer MEDICARE ==
[~2021-10-17] VITALS: Ht 170.2 cm; Wt 68.0 kg
[2021-10-17 14:17] LABS: BASOPHILS ABSOLUTE AUTO 0.02 K/mm3 (0.00-0.23); BASOPHILS PERCENT AUTO 0 % (0-2); EOSINOPHILS ABSOLUTE AUTO 0.01 K/mm3 (0.00-0.68); EOSINOPHILS PERCENT AUTO 0 % (0-6); Hemoglobin 14.7 g/dL (13.5-17.5); IMMATURE GRAN ABSOLUTE AUTO 0.02 K/mm3 (0.00-0.10); IMMATURE GRAN PERCENT AUTO 0 % (0-1); LYMPHOCYTES PERCENT AUTO 24 % (21-46); MONOCYTES ABSOLUTE AUTO 1.17 K/mm3 (0.16-1.47); MONOCYTES PERCENT AUTO 16 % (4-13); Mean Corpuscular HGB 31.1 pg (26.0-34.0); Mean Corpuscular HGB Conc 33.4 g/dL (31.5-36.5); Mean Corpuscular Volume 93 fL (80-100); Mean Platelet Volume 9.7 fL (9.1-12.4); NEUTROPHILS ABSOLUTE AUTO 4.31 K/mm3 (1.96-9.15); NEUTROPHILS PERCENT AUTO 60 % (41-73); Platelet Count 200 K/mm3 (150-400); RDW Coefficient Variation 13.8 % (11.7-14.2); RDW Standard Deviation 47.3 fL (35.1-46.3); Red Blood Cell Count 4.73 M/mm3 (4.30-5.90); White Blood Cell Count 7.23 K/mm3 (4.00-11.30)
[2021-10-17 14:28] LABS: Alanine Aminotransfer (ALT/SGP 29 U/L (12-78); Albumin, Blood 3.8 g/dL (3.4-5.0); Alk Phos 75 U/L (50-136); Anion Gap 7 mmol/L (6-16); Aspartate Aminotrans (AST/SGOT 28 U/L (12-37); Bilirubin, Total 0.8 mg/dL (0.1-1.0); Blood Urea Nitrogen 23 mg/dL (8-24); Bun/Creatinine Ratio 16.3 (12.0-20.0); CO2, Blood 26 mmol/L (21-32); Calcium, Blood 8.8 mg/dL (8.5-10.1); Chloride, Blood 109 mmol/L (98-108); Creatinine, Blood 1.41 mg/dL (0.60-1.20); Ethanol (Alcohol), Blood, Med <3 mg/dL; Globulin, Blood 3.8 g/dL (2.2-4.0); Glomerular Filtration Rate 52 (60-); Glucose, Blood 136 mg/dL (70-99); Potassium, Blood 3.6 mmol/L (3.5-5.5); Sodium, Blood 142 mmol/L (136-145); Total Protein, Blood 7.6 g/dL (6.4-8.2)
[2021-10-17 15:35] LABS: Source, Urine Clean Catch
[2021-10-17 15:42] LABS: Appearance, Urine Hazy (Clear); Bilirubin, Urine Neg (Neg); Blood, Urine 2+ (Neg); Color, Urine Yellow (P-Yellow); Glucose Qualitative, Urine Neg (Neg); Ketones, Urine Neg (Neg); Leukocyte Esterase, Urine Neg (Neg); Nitrite, Urine Neg (Neg); Protein, Urine 2+ (Neg); Specific Gravity, Urine 1.025 (1.003-1.022); Urobilinogen, Urine 1+ (Normal)
[2021-10-17 16:10] LABS: RBC Cast 0-2 /lpf (0)
[2021-10-17 16:11] LABS: Amorphous Mod (0-Heavy); Bacteria Mod /hpf; Mucus Light (0-Heavy); Squamous Epithelial Cells Rare /hpf (Few); White Blood Cells, Urine 0-2 /hpf (0-5)
[2021-10-17 16:12] LABS: Calcium Oxalate Crystals Mod /hpf
[2021-10-17 16:19] LABS: U Amphetamine Screen Not Detected; U Barbituate Screen Not Detected; U Benzodiazapine Screen Not Detected; U Buprenorphine Screen Not Detected; U Cannabinoids Screen Not Detected; U Cocaine Screen Not Detected; U Methadone Screen Not Detected; U Methamphetamine Screen DETECTED; U Opiates Screen Not Detected; U Oxycodone Screen Not Detected; U Phencyclidine Screen Not Detected; U Propoxyphene Screen Not Detected
[2021-10-17] MEDS ORDERED: CEFP200 PO (17:19)
== END 2021-10-17 17:38 | disposition home or self-care (01) ==
LOC: ER 13:25
PROVIDERS: Physician Assistant
DX: N39.0 Urinary tract infection, site not specified (principal); K21.9 Gastro-esophageal reflux disease without esophagitis; Z88.5 Allergy status to narcotic agent; Z79.82 Long term (current) use of aspirin; Z79.899 Other long term (current) drug therapy; Z86.73 Personal history of transient ischemic attack (TIA), and cerebral infarction without residual deficits
CPT/HCPCS: 70450; 71045; 80053; 81001; 84484; 85025; 87086; 93005; 93010; 96374; 99285-25; G0480; J0696

== ENCOUNTER 2024-11-22 18:57 | Inpatient (IN) | payer MEDICARE ==
[~2024-11-22] VITALS: Ht 162.6 cm; Wt 60.3 kg
[~2024-11-22 18:57] MED LIST changes: +CEFP200 PO
[2024-11-22 20:45] LABS: BASOPHILS ABSOLUTE AUTO 0.02 K/mm3 (0.00-0.23); BASOPHILS PERCENT AUTO 0 % (0-2); EOSINOPHILS ABSOLUTE AUTO 0.04 K/mm3 (0.00-0.68); EOSINOPHILS PERCENT AUTO 1 % (0-6); Hematocrit 45.4 % (37.0-53.0); Hemoglobin 15.3 g/dL (13.5-17.5); IMMATURE GRAN ABSOLUTE AUTO 0.01 K/mm3 (0.00-0.10); IMMATURE GRAN PERCENT AUTO 0 % (0-1); LYMPHOCYTES ABSOLUTE AUTO 1.85 K/mm3 (0.84-5.20); LYMPHOCYTES PERCENT AUTO 22 % (21-46); MONOCYTES ABSOLUTE AUTO 0.54 K/mm3 (0.16-1.47); MONOCYTES PERCENT AUTO 7 % (4-13); Mean Corpuscular HGB Conc 33.7 g/dL (31.5-36.5); Mean Corpuscular Volume 90 fL (80-100); NEUTROPHILS ABSOLUTE AUTO 5.87 K/mm3 (1.96-9.15); NEUTROPHILS PERCENT AUTO 71 % (41-73); NRBC ABSOLUTE 0.00 K/mm3 (0.00-0.02); NRBC Auto 0.0 /100 WBC (0.0-0.2); Platelet Count 254 K/mm3 (150-400); RDW Coefficient Variation 13.7 % (11.7-14.2); RDW Standard Deviation 45.3 fL (35.1-46.3)
[2024-11-22 21:31] LABS: Alanine Aminotransfer (ALT/SGP 38.0 U/L (12-78); Albumin, Blood 4.1 g/dL (3.4-5.0); Albumin/Globulin Ratio 0.9 (0.8-1.8); Anion Gap 10.0 mmol/L (3-11); Aspartate Aminotrans (AST/SGOT 27.0 U/L (12-37); Bilirubin, Total 0.9 mg/dL (0.1-1.0); Blood Urea Nitrogen 24.0 mg/dL (8-24); CO2, Blood 23.0 mmol/L (21-32); Calcium, Blood 10.1 mg/dL (8.5-10.1); Chloride, Blood 108.0 mmol/L (98-108); Creatinine, Blood 1.24 mg/dL (0.60-1.20); Globulin, Blood 4.6 g/dL (2.2-4.0); Glucose, Blood 608.0 mg/dL (70-99); Potassium, Blood 4.5 mmol/L (3.5-5.5); Sodium, Blood 136.0 mmol/L (136-145); Total Protein, Blood 8.7 g/dL (6.4-8.2)
[2024-11-22] MEDS ORDERED: NS 1,000 ML IV SCH (22:35)
[2024-11-22 22:52] LABS: pH Blood Venous 7.41 (7.34-7.37)
[2024-11-22 23:11] LABS: Source, Urine Clean Catch
[2024-11-22 23:15] LABS: Bilirubin, Urine Neg (Neg); Glucose Qualitative, Urine 4+ (Neg); Ketones, Urine Neg (Neg); Leukocyte Esterase, Urine Neg (Neg); Protein, Urine 1+ (Neg); Specific Gravity, Urine 1.015 (1.003-1.022); Urobilinogen, Urine NORM (Normal)
[2024-11-22 23:29] LABS: Color, Urine Pale Yellow (P-Yellow)
[2024-11-22] MEDS ORDERED: Insulin Regular 100 Unit/ML 1ML Dose IV ONE (23:30)
[2024-11-22 23:32] LABS: White Blood Cells, Urine 0-2 /hpf (0-5)
[2024-11-23] MEDS ORDERED: Ondansetron HCl 2 MG / ML 2ML Vial IV PRN (00:30)
[2024-11-23 02:46] LABS: BASOPHILS ABSOLUTE AUTO 0.02 K/mm3 (0.00-0.23); BASOPHILS PERCENT AUTO 0 % (0-2); EOSINOPHILS ABSOLUTE AUTO 0.07 K/mm3 (0.00-0.68); EOSINOPHILS PERCENT AUTO 1 % (0-6); Hematocrit 40.6 % (37.0-53.0); Hemoglobin 13.8 g/dL (13.5-17.5); IMMATURE GRAN ABSOLUTE AUTO 0.02 K/mm3 (0.00-0.10); IMMATURE GRAN PERCENT AUTO 0 % (0-1); LYMPHOCYTES ABSOLUTE AUTO 2.24 K/mm3 (0.84-5.20); LYMPHOCYTES PERCENT AUTO 30 % (21-46); MONOCYTES ABSOLUTE AUTO 0.55 K/mm3 (0.16-1.47); MONOCYTES PERCENT AUTO 8 % (4-13); Mean Corpuscular HGB Conc 34.0 g/dL (31.5-36.5); Mean Corpuscular Volume 91 fL (80-100); NEUTROPHILS ABSOLUTE AUTO 4.47 K/mm3 (1.96-9.15); NEUTROPHILS PERCENT AUTO 61 % (41-73); NRBC ABSOLUTE 0.00 K/mm3 (0.00-0.02); NRBC Auto 0.0 /100 WBC (0.0-0.2); Platelet Count 233 K/mm3 (150-400); RDW Coefficient Variation 13.8 % (11.7-14.2); RDW Standard Deviation 45.9 fL (35.1-46.3)
[2024-11-23 03:03] LABS: Alanine Aminotransfer (ALT/SGP 35.0 U/L (12-78); Albumin, Blood 3.7 g/dL (3.4-5.0); Albumin/Globulin Ratio 0.9 (0.8-1.8); Anion Gap 7.0 mmol/L (3-11); Aspartate Aminotrans (AST/SGOT 24.0 U/L (12-37); Bilirubin, Total 0.7 mg/dL (0.1-1.0); Blood Urea Nitrogen 24.0 mg/dL (8-24); CO2, Blood 27.0 mmol/L (21-32); Calcium, Blood 9.3 mg/dL (8.5-10.1); Chloride, Blood 115.0 mmol/L (98-108); Creatinine, Blood 1.17 mg/dL (0.60-1.20); Globulin, Blood 4.1 g/dL (2.2-4.0); Glucose, Blood 334.0 mg/dL (70-99); Magnesium, Blood 2.0 mg/dL (1.6-2.4); Potassium, Blood 3.7 mmol/L (3.5-5.5); Sodium, Blood 145.0 mmol/L (136-145); Total Protein, Blood 7.8 g/dL (6.4-8.2)
[2024-11-23 04:24] VITALS: BP 141/71
[2024-11-23] MEDS ORDERED: CENTRUM MEN 501 EACH PO (05:35)
[2024-11-23] MEDS ORDERED: CLOP75 PO (05:38)
[2024-11-23] MEDS ORDERED: CITALOPRAM HBR10 MG PO (05:38)
[2024-11-23 07:08] VITALS: BP 143/67
[2024-11-23 14:30] VITALS: BP 140/84
[2024-11-23] MEDS ORDERED: Insulin Human Lispro 100 Units/ML 3ML Syringe SC SCH (16:30)
--- NOTE | 2024-11-23 16:46 | NUR ---
PALLIATIVE CARE VISIT: REVIEWED MEDICAL RECORD AND SPOKE TO LOSS PREVENTION ANALYST PRIOR TO VISIT. POLST FOUND THROUGH REGISTRY DATED 01-01-2020 INDICATES AT THAT TIME PT CHOSE CPR/FULL MEASURES. NO POLST OR AD ON FILE WITH [facility]. MET WITH PT AND FAMILY MEMBER JALEN (SON) IN THE ROOM. PT IS MACEDONIAN SPEAKING ONLY. SON REPORTS HIS DAD SPEAKS MACEDONIAN BUT HE RARELY UNDERSTANDS WHAT HIS DAD IS SAYING BECAUSE IT DOES NOT MAKE SENSE. SON REPORTS HIS MOM TAKES CARE OF HIS DAD AT HOME AND SHE IS MACEDONIAN SPEAKING ONLY ALSO. DISCUSSED PROGRESSION OF DEMENTIA ILLNESS AND GOC. PT REPORTEDLY HAD SUDDEN DECLINE WHILE GOING TO THE GROCERY STORE, SHOWING SIGNS OF WEAKNESS/LETHARGY. PT WAS NOT EATING WELL EITHER. THEY CALLED PCP WHO REQUESTED HE BE SENT TO ER. PT WAS RECENTLY STOPPED TAKING METFORMIN BECAUSE A1-C ACCORDING TO PROVIDER WAS IN NORMAL RANGE, SON THOUGHT AROUND 6. LAST A1C ON FILE WAS BACK IN 2022 AND WAS 7.2. PRIOR A1-C LEVELS WERE NORMAL. PT HAS HAD SOME WEIGHT LOSS BUT SON UNSURE HOW MUCH. PT STILL AMBULATORY AT HOME. PT APPEARS WELL NOURISHED. WITH ALBUMIN LEVEL IN NORMAL RANGE AT THIS TIME. PER SON PT HAS NOT HAD ANY EPSIODES OF SUN DOWNING, AGGRESSIVE BEHAVIORS THAT HE IS AWARE OF. PT DOES NOT CURRENTLY MEET HOSPICE CRITERIA. OFFERED OUT PATIENT PALLIATIVE CARE SERVICES TO SON. HE IS AGREEABLE TO PALLIATIVE CARE SERVICE REFERRAL. DISCUSSED ADVANCED CARE PLANNING. INFORMED SON IS PRIMARY DECISION MAKER AT THIS TIME. EDUCATED ON POLST AND ADVANCE DIRECTIVE AND ENCOURAGED TO DISCUSS A FAMILY AND HAVE COMPLETED. PROVIDED POLST INSTRUCTIONS, SAMPLE POLST, AND ADVANCE DIRECTIVE IN MACEDONIAN LANGUAGE REQUESTED BY SON FOR HIS MOM TO READ. EDUCATED SON ON CURRENT CODE STATUS OF FULL CODE AND WHAT THAT MEANS IF PT HAD CARDIAC ARREST. WILL SEND PALLIATIVE OUTPATIENT REFERRAL TO [facility] ON DISCHARGE.
--- NOTE | 2024-11-23 17:17 | NUR ---
SHIFT SUMMARY PT ALERT AND ORIENTED TO SELF. FAMILY REPORTS HE UNDERSTANDS SIERRA LEONEAN ONLY AND ONLY MUMBLES AT BASELINE. ABLE TO COMMUNICATE WITH FAMILY. NEURO CHECKS WNL EXCEPT PT STILL HAVING GEN WEAKNESS WITH MOBILITY. MRI COMPLETED TODAY. SPEECH THERAPY NOT AVAILABLE TODAY FOR SPEECH EVAL. PT ABLE TO SWALLOW FOOD AND DRINK LIQUIDS, BUT DOES NEED TO TAKE PILLS CRUSHED WITH APPLESAUCE. PHYSICAL THERAPY WAS ABLE TO STAND/PIVOT PT, BUT NOT TAKE ANY STEPS WITH PT. NEW ORDERS FOR ACHS BLOOD SUGARS AND MEDIUM SLIDING SCALE INSULIN. PABLO IN PLACE AND PT HAD LARGE BM TODAY. BED ALARM ON FOR SAFETY. FAMILY AT BEDSIDE.
[2024-11-23 19:31] VITALS: BP 115/57
[2024-11-23] MEDS ORDERED: Insulin Glargine-Yfgn 100 Unit/mL 3 ML SYR SC SCH (21:00)
[2024-11-23 22:59] VITALS: BP 117/62
--- NOTE | 2024-11-23 23:27 | NUR ---
TRANSFER NO ACUTE CHANGES NOTED TO PT. PT CONFUSED BUT FOLLOWS DIRECTION, TRANSLATION ASSISTED BY PT'S DAUGHTER WHO IS AT BEDSIDE. PT ABLE TO TAKE HIM MEDS CRUSHED IN APPLESAUCE WITH NO PROBLEM. 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 PT TRANSFERED TO ROOM 328 BY INJECTION MOLDING OPERATOR AND THIS RN. REPORT GIVEN TO DAVID MITTAL ON MEDICAL.
--- NOTE | 2024-11-24 05:24 | NUR ---
SHIFT SUMMARY PT IS ALERT AND ORIENTED TIMES 2, ADMITTED FOR STROKE LIKE SYMPTOMS. PT HAS RIGHT SIDED DEFICITS . PT IS COOPERATIVE WITH CARE AND ABLE TO MAKE NEEDS KNOWN TO STAFF THROUGH DAUGHTER AND SON PT CANNOT SPEAK KINYARWANDA. PT HAS DEMENTIA. BED IS IN LOW POSITION, CALL LIGHT IS WITHIN REACH, AND RAILS ARE TIMES 2.
[2024-11-24 05:43] VITALS: BP 118/67
[2024-11-24 07:16] VITALS: BP 120/67
[2024-11-24] MEDS ORDERED: Insulin NPH 10 Unit/0.1ML (Single Dose) SC ONE (09:00)
[2024-11-24] MEDS ORDERED: Insulin NPH 100 Unit / ML 10ML Vial SC ONE (09:15)
[2024-11-24 12:48] VITALS: BP 116/72
[2024-11-24 15:42] VITALS: BP 111/55
--- NOTE | 2024-11-24 18:59 | NUR ---
PALLIATIVE CARE VISIT: MADE VISIT THIS AFTERNOON. SPOKE WITH DAUGHTER TODAY. PT WAS SLEEPING THROUGH THE VISIT. PT STARTED ON LONG ACTING INSULIN. HAS A DIET ORDER. DISCUSSED ASPIRATION RISKS. DAUGHTER STATES SHE HAS NOT OBSERVED ANY CHOKING, COUGHING EPISODES WHILE HE HAS BEEN EATING OR DRINKING. DAUGHTER PLANS TO STAY THE NIGHT TONIGHT TO ASSIST WITH RE-ORIENTATION NEEDED. PT DID GET AGITATED EARLIER TODAY PER DAUGHTER BUT WAS EASILY CALMED DOWN, RE-DIRECTED. SYMPTOMS MANAGED AT THIS TIME. DAUGHTER STATED HER MOM CAME TO VISIT AND TOOK POLST/AD FORMS HOME TO READ OVER.
--- NOTE | 2024-11-24 19:35 | NUR ---
PT WAS AGITATED AND ATTEMPTING TO HIT MIDDAY. CONTINUES CONFUSED AND TALKING GIBBERISH. ORDERS FOR ZYPREXA RECEIVED AND GIVEN. PT HAS BEEN RESTING PEACEFULLY AND SLEEPING T/O REST OF DAY. FAMILY AT BEDSIDE. DOES AWAKEN WITH TOUCH. NO FURHTER CONCERNS NOTED. BED IN LOW [facility], CALL LITE IN [facility], FAMILY CALLS WITH NEEDS.
[2024-11-24 20:13] VITALS: BP 97/56
[2024-11-24] MEDS ORDERED: Insulin Glargine-Yfgn 100 Unit/mL 3 ML SYR SC SCH (21:00)
--- NOTE | 2024-11-24 22:27 | NUR ---
PT VERY DROWSY UNABLE TO WAKE UP ENOUGH TO SAFETLY TAKE MEDICATION. PT HAS BEEN DROWSY AND SLEEPING SINCE ZYPREXA WAS GIVEN. BLOOD SUGAR WAS 76 AND PT IS NOT EATING DISCUSSED WITH HOSPITALIST TONIA EVENING MEDICATIONS HELD DUE TO PT NOT BEING ABLE TO TAKE PO.
[2024-11-25 01:06] VITALS: BP 120/71
--- NOTE | 2024-11-25 05:39 | NUR ---
PY WAS GIVEN ZYPREXA FROM PREVIOUS SHIFT PT HAS BEEN VERY DROWSY WAKING UP WHEN TOUCHED BUT WILL START YELLING AND CUSSING AND SCREAMING. HE HAS REFUSED ALL FOODS AND FLUIDS. DUE TO PT INCREASED LETHARGY I WAS NOT ABLE TO GIVE PT PM MEDS OR FOOD. BLOOD SUGAR WAS 76 DISCUSSED WITH HOSPITALIST PM GUNNER GLARGIN WAS HELD. BLOOD SUGAR RECHECKED AT 0100 DUE TO PREVIOUS BLOOD SUGAR AND NO PO INTACKE AND WAS WNL.
[2024-11-25 06:04] VITALS: BP 139/75
[2024-11-25 07:40] VITALS: BP 113/66
[2024-11-25 15:41] VITALS: BP 123/63
--- NOTE | 2024-11-25 18:11 | NUR ---
SHIFT SUMMARY PT CONT LEVEL OF CARE. PT NOTED TO BE A&O TO SELF AND FAMILY. PT NOTED TO BE KOREAN SPEAKING ONLY AND FAMILY REMAINS AT BEDSIDE THROUGHOUT SHIFT. LewisYPDARRIUS, TELE DC THIS SHIFT. FAMILY EDUCATED ON DIABETIC DIET AND INSULIN ADMINISTRATION. PT CONT WITH [facility] ACC CHECK BUT HAS NOT REQUIRED COVERAGE THIS SHIFT. PT PLAN IS TO POSSIBLE DC TOMORROW.
[2024-11-25 19:27] VITALS: BP 113/70
[2024-11-25] MEDS ORDERED: Insulin Glargine-Yfgn 100 Unit/mL 3 ML SYR SC SCH (21:00)
[2024-11-26 04:49] VITALS: BP 123/62
--- NOTE | 2024-11-26 06:21 | NUR ---
Shift Summary No acute changes, family in room helping with care. Pt is AOx1-2. Son in room with pt t/o the night. Pt is cont/incont, 1 assist to the BR. He slept well t/o most of the night.
--- NOTE | 2024-11-26 07:59 | NUR ---
ASSUMPTION OF CARE: THIS RN ASSUMED CARE OF PATIENT c ORIENTING LESLEE ZIEGLER. CALL LIGHT ON UPON THIS NURSES ARRIVAL TO FLOOR. PT REQUIRED BED CHANGE SECONDARY TO STOOL INCONTINENCE. PATIENT POSITIVE FOR [facility] AND PLACED INTO CONTACT PRECAUTIONS PER DISCUSSION WITH INFECTION DISEASE AND TONEY CAMILO. ORDER PLACED. BED IN LOWEST POSITION. CALL LIGHT WITHIN REACH. ACUTE NEEDS MET.
[2024-11-26 08:09] VITALS: BP 138/66
[2024-11-26] MEDS ORDERED: INSULIN GL100 UNIT/2 SC (11:14)
[2024-11-26] MEDS ORDERED: HUMALOG KW100 UNIT/1 SC (11:17)
--- NOTE | 2024-11-26 14:08 | NUR ---
DISCHARGE SUMMARY: A&O TO SELF AND TO FAMILY THROUGHOUT SHIFT. SON AND DAUGHTER IN ROOM TO ASSIST PT WITH PREPARING FOR DISCHARGE. EDUCATION ON HOW/WHEN TO ADMINISTER INSULIN PROVIDED TO DAUGHTERFERNIE. ADDITIONAL INFORMATION ON PAPER SENT HOME WITH PT. DAUGHTER PROVIDED VERBAL UNDERSTANDING OF INFORMATION GIVEN. HARD SCRIPT FOR INSULIN LEFT WITH PATIENT. DENIED CHEST PAIN/DISCOMFORT PRIOR TO LEAVING WITH VSS. PT WHEELED OUT VIA W/C WITH FAMILY. IV REMOVED.
--- NOTE | 2024-11-26 17:11 | NUR ---
SPOKE WITH DR ELLIOTT REGARDING MEDICATION CHANGE FROM HUMALOG TO NOVALOG AFTER DISCHARGE DUE TO INSURANCE. [facility] NOTIFIED.
--- NOTE | 2024-11-26 18:55 | NUR ---
SEVERAL CALLS FROM [facility] WHO IS STRUGGLING TO GET INSULIN AND DM SUPPLIES FILLED BY PHARMACY. PHARMACY REQUESTING NEW Rx SENT INCLUDING ICD-10 CODES, FREQUENCY OF TESTING AND NAME/BRAND OF MACHINE FOR INSURANCE COVERAGE. PT'S DAUGHTER STATES SHE PURCHASES GLUCOMETER OFF OF [employer] AND WAS WILLING TO PAY FOR INSULIN OUT OF POCKET. INSULIN WAS VIALS AND SYRINGES OPPOSED TO PENS c NEEDLE HEADS. THEY CAME BACK INTO HOSPITAL AND EDUCATION WAS PROVIDED ON HOW TO DRAW UP INSULIN AND ADMINISTER VIA SYRINGE. THEY WILL CONTACT PCP'S OFFICE TOMORROW TO SEND Rx FOR DIABETIC TESTING SUPPLIES TO PRIMARY PHARMACY AND THEY DO NOT NEED NEW Rx SENT IN FROM [facility]. THEY PAID FOR INSULIN OUT OF POCKET.
== END 2024-11-26 13:55 | disposition home health service (06) | DRG 637 ==
LOC: ER 18:57 → SURS 18:58 → ERHOLD 18:58 → SURS 11-23 04:35 → MEDS 11-23 22:55
PROVIDERS: Student in an Organized Health Care Education/Training Program; ADMIT Student in an Organized Health Care Education/Training Program
DX: E11.65 Type 2 diabetes mellitus with hyperglycemia (principal); G92.8 Other toxic encephalopathy; I69.851 Hemiplegia and hemiparesis following other cerebrovascular disease affecting right dominant side; R53.81 Other malaise; F03.90 Unspecified dementia, unspecified severity, without behavioral disturbance, psychotic disturbance, mood disturbance, and anxiety; K21.9 Gastro-esophageal reflux disease without esophagitis; Z79.82 Long term (current) use of aspirin; Z88.5 Allergy status to narcotic agent; Z79.899 Other long term (current) drug therapy; Z90.89 Acquired absence of other organs; Z98.890 Other specified postprocedural states; Z90.79 Acquired absence of other genital organ(s)
CPT/HCPCS: 36415; 51702; 70450; 70551; 80053; 81001; 82010; 82803; 82947; 83036; 83690; 83735; 84484; 85025; 93005; 93010; 97110; 97161; 97530; A9270; G0378; J1815; J7030; J7120